=== PATIENT | male | born 1950 | race Caucasian/White ===

== ENCOUNTER → 2024-12-19 08:51 | Outpatient (BNVA) | payer MEDICARE, SELFPAY | PROVIDERS: Family Provider Internal Medicine; PCP Family Medicine; Visit Provider Family Medicine | DX: E55.9 Vitamin D deficiency, unspecified (principal); E11.9 Type 2 diabetes mellitus without complications; Z51.81 Encounter for therapeutic drug level monitoring; Z13.6 Encounter for screening for cardiovascular disorders; R35.0 Frequency of micturition | CPT/HCPCS: 80053; 80061; 82306; 83036; 84153; 85025 ==